=== PATIENT | female | born 1990 | race Caucasian/White ===

== ENCOUNTER → 2021-01-17 20:25 | Outpatient (CLI) | payer MEDICAID, SELFPAY | PROVIDERS: Visit Provider Nurse Practitioner Family | DX: Z20.822 Contact with and (suspected) exposure to COVID-19 (principal) | CPT/HCPCS: U0003 ==

== ENCOUNTER → 2021-03-08 13:54 | Outpatient (CLI) | payer MEDICAID, SELFPAY ==
[2021-03-08 14:05] LABS: Basophils # 0.1 K/mm3 (0-0.2); Basophils % 0.5 % (0.1-2.0); Eosinophils # 0.2 K/mm3 (0.0-0.4); Eosinophils % 1.9 % (0.1-12.0); Hematocrit 39.9 % (37.0-47.0); Hemoglobin 11.7 g/dL (12.2-16.2); Lymphocytes # 2.9 K/mm3 (0.7-4.5); Lymphocytes % 22.6 % (10-50); Mean Corpuscular HGB Conc 29.4 g/dL (31.8-35.4); Mean Corpuscular Hemoglobin 22.9 pg (27.0-31.2); Mean Corpuscular Volume 77.8 fl (81-99); Mean Platelet Volume 7.5 fl (7.4-10.4); Monocytes # 0.6 K/mm3 (0.1-1.0); Monocytes % 4.5 % (1.7-9.3); Neutrophils % 70.6 % (37.0-80.0); Platelet Count 419 K/mm3 (142-424); Red Blood Count 5.12 M/mm3 (4.20-5.40); Red Cell Distribution Width 14.6 % (11.5-17.5); White Blood Count 12.7 K/mm3 (4.8-10.8)
[2021-03-08 15:13] LABS: Alanine Aminotransferase 15 U/L (12-78); Albumin Level 4.4 g/dl (3.5-5.0); Albumin/Globulin Ratio 1.3 (1.1-1.8); Alkaline Phosphatase 86 U/L (38-126); Aspartate Amino Transferase 20 U/L (14-36); Blood Urea Nitrogen 8 mg/dl (7-17); Calcium 9.6 mg/dl (8.4-10.2); Carbon Dioxide 25 mmol/L (22.0-30.0); Chloride 104 mmol/L (98-107); Chol/HDL Ratio 3.9 (1-3.5); Cholesterol 180 mg/dl (140-200); Estimated Glomerular Filt Rate 117 ml/min (>60); GFR (African American) 142 ML/MIN (>60); Globulin 3.4 g/dL (1.3-3.2); Glucose 87 mg/dl (74-100); HDL Cholesterol 46 mg/dl (40-60); Sodium 139 mmol/L (136-145); Total Protein,Serum 7.8 g/dl (6.3-8.2); Triglycerides 78 mg/dl (30-150); VLDL Cholesterol 16 mg/dL (0-40)
[2021-03-08 15:24] LABS: Direct LDL Cholesterol 112.28 mg/dL (100-129)
[2021-03-08 15:28] LABS: 25-OH Vitamin D, Total 31.6 ng/mL (30-100)
[2021-03-08 15:30] LABS: T4 (Thyroxine) 12.5 ug/dl (5.53-11.0)
[2021-03-08 15:33] LABS: Bilirubin,Total < 0.1 mg/dl (0.2-1.3)
[2021-03-08 16:30] LABS: Hemoglobin A1C 5.5 % (4.0-6.0)
== END ==
PROVIDERS: Visit Provider Nurse Practitioner Family
DX: I10 Essential (primary) hypertension (principal); F41.9 Anxiety disorder, unspecified; F32.A Depression, unspecified; R53.83 Other fatigue; E66.9 Obesity, unspecified; Z68.41 Body mass index [BMI] 40.0-44.9, adult
CPT/HCPCS: 80053; 80061; 82306; 83036; 84436; 84443; 85025

== ENCOUNTER 2023-03-25 10:24 | Emergency (ER) | payer MEDICAID, SELFPAY ==
[2023-03-25 10:26] VITALS: BP 196/117; PULSE 80; RESP 16; TEMP 36.7; O2SAT 98; BMI 39.1
--- NOTE | 2023-03-25 10:44 | HMH.EDGENADL ---
Discharge Plan Disposition Patient Disposition: Home, Self-Care Prescriptions Prescriptions: New cephalexin 500 mg capsule 1,000 mg PO BID 10 Days Qty: 40 0RF No Action drospirenone (contraceptive) 4 mg (28) tablet 4 mg PO DAILY lisinopril 10 mg tablet 10 mg PO DAILY Qty: 30 0RF Referrals Follow up/Referrals: Provider,Referral, [Primary Care Provider] - See instructions Activity Restrictions/Add. Instructions Additional Instructions/Restrictions: Call your family doctor to establish care for this visit to the emergency department and schedule follow-up within 48 hours to ensure improvement. If you have any worsening of your condition or any other concerning signs or symptoms, return to the emergency department or your primary care doctor for further evaluation. Antibiotic twice daily for 10 days Clinical Impressions Clinical Impression: Strep pharyngitis Discharge ED Provider: Romel Herbert General Adult HPI General Chief complaint: Upper Respiratory Infection Stated complaint: ear pain, sore throat Time Seen by Provider: 03/25/23 10:25 Mode of Arrival: Ambulatory Source of Information: Patient Limitations: No Limitations Description of Symptoms (Recalled from ER Triage Doc. by RN): Patient reports sore throat and bilateral ear pain since Saturday. States her left ear is worse than her right ear. Denies fever or nausea and vomiting. History of Present Illness HPI narrative: 32-year-old female with no relevant medical history presenting with sore throat and left ear pain. Patient states it started Saturday. Has a close family contact who has strep throat. Has not had objective fevers, but states that she feels febrile and chilled. No vomiting, change in voice, difficulty or pain with range of motion of neck, neurologic deficits, cough, or any other concerns. Has not taken any medications to help with the pain. Related Data Home Medications Medication Instructions Recorded Confirmed drospirenone (contraceptive) 4 mg 4 mg PO DAILY 03/08/21 03/08/21 (28) tablet Previous Rx's Medication Instructions Recorded lisinopril 10 mg tablet 10 mg PO DAILY #30 tabs 03/09/21 cephalexin 500 mg capsule 1,000 mg PO BID 10 days #40 caps 03/25/23 Allergies Allergy/AdvReac Type Severity Reaction Status Date / Time poison vitaliy extract Allergy Intermediate Verified 03/08/21 11:05 clindamycin Allergy Mild vomiting Verified 03/08/21 11:05 [facility] Disclaimer: The information contained in this section may have been updated after the patient was seen, as this information can be updated by other users. Social History Smoking Status: Current every day smoker tobacco type: cigarettes alcohol intake: current substance use type: denies use current occupational status: employed and unemployed Travel in the last 8 weeks: None ROS Obtained: Yes All systems reviewed & no additional complaints except as documented Physical Exam General General appearance: alert and in no apparent distress Eye Eye exam: Present normal appearance ENT ENT exam: Present mucous membranes moist, TM's normal bilaterally and other (Pharyngeal erythema with tonsillitis and exudate. Uvulitis as well) Neck Neck exam: Present lymphadenopathy; Absent tenderness Respiratory Respiratory exam: Absent respiratory distress or wheezes Cardiovascular Cardiovascular exam: Present regular rate and normal rhythm Neurological Exam Neurological exam: Present alert, oriented X3 and CN II-XII intact Medical Decision Making Medical Records Medical records reviewed: Yes I reviewed the patient's medical records. Christopher Inquiry Pt receiving controlled substance: No Vital Signs: 03/25/23 10:26 Temperature 98.0 F Temperature Source Oral Pulse Rate [Radial] 80 Respiratory Rate 16 Blood Pressure [Right Arm] 196/117 H Blood Pressure Mean [Right Arm] 143 Blood Pressure Source [Right Arm] Automatic Cuff Blood Pressure Po
[2023-03-25 10:55] VITALS: BP 181/118; PULSE 76; RESP 16; TEMP 36.8; O2SAT 99
== END 2023-03-25 10:55 | disposition home or self-care (01) ==
PROVIDERS: Emergency Provider Emergency Medicine
DX: J02.0 Streptococcal pharyngitis (principal); R07.0 Pain in throat; Z87.891 Personal history of nicotine dependence
CPT/HCPCS: 99282; 99283

== ENCOUNTER 2023-04-26 14:20 | Emergency (ER) | payer MEDICAID, SELFPAY ==
[2023-04-26 14:21] VITALS: BP 169/109; PULSE 88; RESP 16; TEMP 36.4; O2SAT 98; BMI 38.7
--- NOTE | 2023-04-26 15:06 | HMH.EDGENADL ---
Discharge Plan Disposition Condition: Fair Chief Complaint: Headache Prescriptions Prescriptions: No Action drospirenone (contraceptive) 4 mg (28) tablet 4 mg PO DAILY lisinopril 10 mg tablet 10 mg PO DAILY Qty: 30 0RF cephalexin 500 mg capsule 1,000 mg PO BID 10 Days Qty: 40 0RF Referrals Follow up/Referrals: Provider,Referral, [Primary Care Provider] - See instructions Activity Restrictions/Add. Instructions Additional Instructions/Restrictions: Please follow-up with your primary care provider. Please return to the emergency department if you develop any new or worsening symptoms or become concerned for your health. As we discussed, recommend that you follow-up with your primary care provider regarding treatment of your high blood pressure. Clinical Impressions Clinical Impression: Upper respiratory infection, viral, Hypertension Discharge ED Provider: Ben Zurita I General Adult HPI General Chief complaint: Headache Stated complaint: COVID TEST Time Seen by Provider: 04/26/23 14:49 Mode of Arrival: Ambulatory Source of Information: Patient Limitations: No Limitations Description of Symptoms (Recalled from ER Triage Doc. by RN): patient states has had headache x2 days; has hx of HTN - states does not take meds - does not like to take meds. History of Present Illness HPI narrative: Patient is a 32 year old female with history of hypertension, depression, anxiety who is presenting to the emergency department with a 2-day history of cough, congestion, runny nose as well as headache. Patient is concerned that she could be could have been exposed to COVID. History was conducted to the patient at bedside. She reports that she has been symptomatic for the past 2 days with runny nose, sinus pressure as well as headache. She is also had an intermittent productive cough of phlegm. She denies any chest pain, shortness of breath, difficulty breathing, fever, chills, myalgias, abdominal pain, dysuria, urinary urgency or frequency. Related Data Home Medications Medication Instructions Recorded Confirmed drospirenone (contraceptive) 4 mg 4 mg PO DAILY 03/08/21 03/08/21 (28) tablet Previous Rx's Medication Instructions Recorded lisinopril 10 mg tablet 10 mg PO DAILY #30 tabs 03/09/21 cephalexin 500 mg capsule 1,000 mg PO BID 10 days #40 caps 03/25/23 Allergies Allergy/AdvReac Type Severity Reaction Status Date / Time poison vitaliy extract Allergy Intermediate Verified 03/08/21 11:05 clindamycin Allergy Mild vomiting Verified 03/08/21 11:05 [facility] Disclaimer: The information contained in this section may have been updated after the patient was seen, as this information can be updated by other users. Social History Smoking Status: Current every day smoker tobacco type: cigarettes alcohol intake: current substance use type: denies use current occupational status: employed and unemployed Travel in the last 8 weeks: None ROS Obtained: Yes All systems reviewed & no additional complaints except as documented Physical Exam General General appearance: alert and in no apparent distress Head Head exam: atraumatic and normocephalic ENT ENT exam: Present normal exam Neck Neck exam: Present full ROM Chest Chest inspection: Present normal inspection and symmetric chest wall rise Respiratory Respiratory exam: Present normal lung sounds bilaterally; Absent respiratory distress or accessory muscle use Cardiovascular Cardiovascular exam: Present regular rate and normal rhythm Abdominal Exam Abdominal exam: Present soft; Absent distention, tenderness, guarding or rebound Extremities Exam Extremities exam: Present normal inspection and full ROM Neurological Exam Neurological exam: Present alert and oriented X3 Psychiatric Psychiatric exam: Present normal affect Skin Skin exam: Present warm, dry and intact Medical Decision Making Medical Records Medical records revi
[2023-04-26 15:08] LABS: Coronavirus 19, PCR Not Detected (NotDetected); Influenza A, PCR Not Detected (NotDetected); Influenza B, PCR Not Detected (NotDetected)
[2023-04-26 15:37] VITALS: BP 181/84; PULSE 84; RESP 16; TEMP -17.7; TEMP 0; O2SAT 98
== END 2023-04-26 15:38 | disposition home or self-care (01) ==
PROVIDERS: Emergency Provider Emergency Medicine
DX: R51.9 Headache, unspecified (principal); J06.9 Acute upper respiratory infection, unspecified; R05.9 Cough, unspecified; I10 Essential (primary) hypertension; F17.210 Nicotine dependence, cigarettes, uncomplicated
CPT/HCPCS: 87636; 99283

== ENCOUNTER 2024-08-13 10:39 | Emergency (ER) | payer MEDICAID, SELFPAY ==
[2024-08-13 10:49] VITALS: BP 230/123; PULSE 89; RESP 16; TEMP 36.8; O2SAT 99; BMI 37.9
--- NOTE | 2024-08-13 10:53 | ED_ITS ---
Discharge Plan Disposition Patient Disposition: Home, Self-Care Prescriptions Prescriptions: New sulfamethoxazole-trimethoprim [Bactrim DS] 800-160 mg tablet 1 tab PO BID 5 Days Qty: 10 0RF candesartan 16 mg tablet 16 mg PO DAILY Qty: 30 2RF No Action drospirenone (contraceptive) 4 mg (28) tablet 4 mg PO DAILY lisinopril 10 mg tablet 10 mg PO DAILY Qty: 30 0RF cephalexin 500 mg capsule 1,000 mg PO BID 10 Days Qty: 40 0RF Referrals Follow up/Referrals: Provider,MD Calin [Primary Care Provider] - See instructions Sander Lee MD [Staff Physician] - See instructions Activity Restrictions/Add. Instructions Additional Instructions/Restrictions: Antibiotic twice daily for 5 days. Start candesartan 1 time daily. Call your family doctor to establish care for this visit to the emergency department and schedule follow-up within 48 hours to ensure improvement. If you have any worsening of your condition or any other concerning signs or symptoms, return to the emergency department or your primary care doctor for further evaluation. Clinical Impressions Clinical Impression: Asymptomatic hypertension, Cellulitis and abscess of trunk Instructions Patient Instructions: DI for Skin Abscess Print Language Print Language: Albanian Discharge ED Provider: Romel Herbert General Adult HPI General Chief complaint: Skin/Abscess/Foreign Body Stated complaint: Skin Infection under R arm Time Seen by Provider: 08/13/24 10:46 History of Present Illness HPI narrative: Please note that above description of symptoms, in this electronic medical vern rd under categorization of recalled from ER triage doctor by RN are reflective of an initial nursing assessment, however, is not reflective of my full history and physical exam that was personally taken and clarified. Consequentially, this preceding description of symptoms, which may include the patient's categorized chief complaint in the EMR, do not reflect my personal clinical impression, and the ultimate description of history of present illness and patient stated complaints should be deferred to this section of the note. Unless stated otherwise or congruent with this section of the note, additional signs, symptoms, or incongruence should be interpreted as inaccurate with my clinical impression. Related Data Home Medications ?Medication ?Instructions ?Recorded ?Confirmed drospirenone (contraceptive) 4 mg 4 mg PO DAILY 03/08/21 03/08/21 (28) tablet Previous Rx's ?Medication ?Instructions ?Recorded lisinopril 10 mg tablet 10 mg PO DAILY #30 tabs 03/09/21 cephalexin 500 mg capsule 1,000 mg (2 x 500 mg) PO BID 10 03/25/23 days #40 caps candesartan 16 mg tablet 16 mg PO DAILY #30 tabs 08/13/24 sulfamethoxazole 800 1 tab PO BID 5 days #10 tabs 08/13/24 mg-trimethoprim 160 mg tablet (Bactrim DS) Allergies Allergy/AdvReac Type Severity Reaction Status Date / Time poison vitaliy extract Allergy Intermediate Verified 03/08/21 11:05 clindamycin Allergy Mild vomiting Verified 03/08/21 11:05 [facility] Disclaimer: The information contained in this section may have been updated after the patient was seen, as this information can be updated by other users. Social History Smoking Status: Current every day smoker tobacco type: cigarettes alcohol intake: current alcohol intake frequency: holidays/special occasions only substance use type: denies use current occupational status: employed and unemployed Travel in the last 8 weeks: None Have you lived/traveled outside [place] in past 30 days?: No Contact w/someone who lives/traveled outside [place] past 30 days?: No Exposure to someone with infectious disease in past 14 days?: No Do you have a fever (greater than 100.4 F or 38 C)?: No Have you tested positive for COVID-19: No Exposed to someone with COVID-19 in past 14 days?: No Do you have a sore throat?: No Do you have a cough?: No Do you have any weakness?: No Do you have any diarrhea?: No Are you experiencing any unusual bleeding?: No Do you have any muscle aches/pain?: No Do you have any abdominal pain?: No Are you experiencing loss of taste or smell?: No Other Medical History Have you received the Pneumonia Vaccine: No ROS Obtained: Yes All systems reviewed & no additional complaints except as documented Physical Exam General General appearance: alert, in no apparent distress and obese Head Head exam: atraumatic and normocephalic Eye Eye exam: Present normal appearance, PERRL and EOMI Neck Neck exam: Present normal inspection, full ROM and trachea midline Respiratory Respiratory exam: Absent respiratory distress, wheezes, stridor, accessory muscle use or prolonged expiratory phase Cardiovascular Cardiovascular exam: Present other (Pulses equal symmetric in upper and lower extremities) Abdominal Exam Abdominal exam: Present soft; Absent distention, tenderness or pulsatile mass Extremities Exam Extremities exam: Absent edema Neurological Exam Neurological exam: Present alert, oriented X3 and CN II-XII intact; Absent motor sensory deficit Skin Skin exam: Present warm, dry and erythema (With associated induration about 10 cm inferior to the axilla on the right. Appears to be coming to ahead. No obvious fluctuance); Absent diaphoresis Medical Decision Making Medical Records Medical records reviewed: Yes I reviewed the patient's medical records. Screening: Per USPSTF and CDC recommendations, given the prevalence of disease in our region, it is our hospital?s policy to screen for HIV and viral Hepatitis for all patients aged 18 and over and those with ongoing risk factors. Christopher Inquiry Pt receiving controlled substance: No Christopher was queried for this patient: No Vital Signs: 08/13/24 10:49 Temperature 98.3 F Temperature Source Oral Pulse Rate [Right] 89 Respiratory Rate 16 Blood Pressure [Left Arm] 230/123 H Blood Pressure Mean [Left Arm] 158 Blood Pressure Source [Left Arm] Automatic Cuff 02 Sat by Pulse Oximetry 99 Oxygen Delivery Method Room Air Orders (Tests/Meds): ED MEDICATIONS Discontinued Medications Generic Name Dose Route Start Last Admin Trade Name Freq PRN Reason Stop Dose Admin Trimethoprim/Sulfamethoxazole 1 each 08/13/24 10:51 08/13/24 10:57 Sulfa/Trimethoprim 1 Tablet PO 08/13/24 10:52 1 each ONCE ONE Administration ORDERS Category Date Time Status POCUS Point of Care (ER Only) Stat Exams 08/13/24 10:51 Ordered Medical Decision Narrative: This is a 33-year-old female presenting with lesion underneath her right axilla. States that it started yesterday, 08/12. Significant other has had abscesses in the past that needed lanced. He marked around it and was hoping it would get better, but today, it has spread beyond the border, so came in for further evaluation. No systemic signs or symptoms. No other lesions on her body. No history in her, herself. History obtained with patient and significant other. On arrival, very clinically well-appearing. She has a small area of induration without fluctuance inferior to the right axilla in the mid axillary line. Appears to be coming to ahead. I do not feel that this is likely to be an abscess, but patient very obviously has beginnings of cellulitis and [id number] ultrasound to be performed to rule out underlying abscess. On independent interpretation of bedside [id number] ultrasound, small 3 mm irregular fluid collection without loculations. Patient tolerated Bactrim without issue. Because patient at baseline without signs or symptoms of clinical decompensation, deemed appropriate for discharge. Results were relayed to patient who voiced understanding and were agreeable to outpatient management and follow up. I discussed my clinical impression with patient and answered all questions. At this time, the evidence for any other entities in the differential is insufficient to warrant any further testing or ED observation. This was explained as well. Advisory was given that persistent or worsening symptoms require further evaluation. I confirmed the understanding of this discussion. Regarding social determinants of health, patient does not have a family doctor. Because of blood pressure, patient was also started on candesartan 16 mg and recommended follow-up with family doctor for further management. [employer] disclaimer Much of this encounter note is an electronic oil well shooter spoken language to printed text. Electronic oil well shooter of the spoken language may permit errors. Although I have reviewed the note, some errors may still exist. Critical Care Critical Care Time Critical Care Time: No
[2024-08-13] MEDS: SULFA/TRIMETHOPRIM 1 TABLET 1 EACH PO (10:57)
[2024-08-13 11:23] VITALS: BP 200/101; PULSE 75; RESP 17; TEMP 36.8; O2SAT 98
== END 2024-08-13 11:25 | disposition home or self-care (01) ==
PROVIDERS: Emergency Provider Emergency Medicine
DX: L03.319 Cellulitis of trunk, unspecified (principal); R22.31 Localized swelling, mass and lump, right upper limb; I10 Essential (primary) hypertension; F17.210 Nicotine dependence, cigarettes, uncomplicated
CPT/HCPCS: 99283